=== PATIENT | male | born 1975 | race Caucasian/White ===

== ENCOUNTER 2017-03-03 21:11 | Inpatient (IN) | payer MEDICAID ==
[2017-03-03] MEDS ORDERED: Pantoprazole 40 mg EC Tab PO STA (21:30)
[2017-03-03 21:47] LABS: HEMATOCRIT 47.3 % (41.0-60); HEMOGLOBIN 16.1 gm/dL (12-16); MEAN CELL VOLUME 90.5 fl (80-99); MEAN CORPUSCULAR HEMOGLOBIN 30.7 pg (26.0-30.0); MEAN PLATELET VOLUME 10.1 fl; PLATELET COUNT 213 Th/cmm (150-400); RED BLOOD COUNT 5.22 Mil/cmm (4.30-5.70); RED CELL DISTRIBUTION WIDTH 12.3 % (11.5-20.0)
[2017-03-03 21:53] LABS: WHITE BLOOD COUNT 13.6 Th/cmm (4.8-10.8)
[2017-03-03 22:04] LABS: ALB/GLOB RATIO 1.2 (1.0-1.8); ALKALINE PHOSPHATASE 133 U/L (34-104); ANION GAP 9.1 (7.0-16.0); BILIRUBIN,TOTAL 0.9 mg/dL (0.3-1.0); BUN - UREA NITROGEN 17 mg/dL (7-25); BUN/CREATININE RATIO 28.3; CALCIUM SERUM 9.5 mg/dL (8.6-10.3); CARBON DIOXIDE 29.2 mEq/L (21.0-31.0); CHLORIDE 100 mEq/L (98-107); CREATININE - SERUM 0.6 mg/dL (0.7-1.3); GLUCOSE 106 mg/dL; POTASSIUM SERUM 3.3 mEq/L (3.5-5.1); SGOT 31 U/L (13-39); SGPT/ALT 32 U/L (7-52); SODIUM SERUM 135 mEq/L (136-145)
[2017-03-03 22:13] LABS: BAND NEUTROPHILE 4 % (0-10); NEUTROPHILS 86 % (40-80); PLATELET ESTIMATE ADEQUATE (NORMAL)
[2017-03-03] MEDS ORDERED: Potassium Chloride Elixir 20 mEq /15 mL UDC GT ONE (22:17)
[2017-03-03] MEDS ORDERED: Piperacillin Sodium/Tazobact 3.375 gm Vial IV ONE (22:33)
[2017-03-03] MEDS ORDERED: Pantoprazole 40 mg EC Tab PO ONE (22:43)
[2017-03-03] MEDS ORDERED: Potassium Chloride Elixir 20 mEq /15 mL UDC ONE (23:06)
[2017-03-04] MEDS ORDERED: Sodium Chloride 0.9% 1,000 ML IV SCH (00:15)
[2017-03-04] MEDS ORDERED: D5-0.45NS 1,000 ML IV SCH (00:45)
[2017-03-04 01:26] VITALS: BP 119/58
[2017-03-04] MEDS ORDERED: Influenza Vaccine 0.5 mL Syr IM ONE (01:56)
[2017-03-04] MEDS ORDERED: Fleet Enema 135 mL RC PRN (07:48)
[2017-03-04] MEDS ORDERED: Albuterol Nebulizer 2.5mg/3mL HHN PRN (07:48)
[2017-03-04] MEDS ORDERED: Magnesium Hydroxide (MOM) 30 mL UDC GT PRN (07:48)
[2017-03-04] MEDS ORDERED: Maalox 30 mL Cup PO PRN (07:50)
[2017-03-04] MEDS ORDERED: guaiFENesin 200 MG/10 ML UDC PO PRN (07:50)
[2017-03-04] MEDS: Multivitamin w/ Minerals Tab GT SCH (08:50)
[2017-03-04] MEDS: Ferrous Sulfate 300 MG/5 ML UDC GT SCH ×3 (08:50→20:31)
[2017-03-04] MEDS: Pantoprazole 40 mg/Packet GT SCH (08:50)
[2017-03-04] MEDS: carBAMazepine 200 mg/10 mL UDC GT SCH ×3 (08:50→20:31)
[2017-03-04] MEDS ORDERED: MULTIVITAMIN GT SCH (09:00)
[2017-03-04] MEDS ORDERED: Non-Formulary Item 1 EA (Ferrous Sulfate [Ferosul] 7.5 ML) GT SCH (09:00)
[2017-03-04] MEDS ORDERED: MINERALS GT SCH (09:00)
--- NOTE | 2017-03-04 09:49 | Diagnostic Imaging Report ---
CHEST X-RAY: AP view INDICATION: Pneumonia, mass COMPARISON: None FINDINGS: Chronic changes are seen with increased bibasilar lung markings. No focal consolidation or effusions. Mild cardiomegaly is noted. Suboptimal lung volumes are noted. Gas-filled loops of bowel are seen along the left hemiabdomen. Osseous structures are intact. IMPRESSION: Increased bibasilar lung markings favoring atelectatic changes, no focal consolidation identified. Mild cardiomegaly. If there is clinical concern for an occult pulmonary mass lesion, CT examination is recommended for further assessment.
[2017-03-04] MEDS: D5-0.9%NS 1,000 ML IV SCH (12:53)
[2017-03-04] MEDS ORDERED: Probiotic Screen MC PRN (13:26)
--- NOTE | 2017-03-04 22:04 | History & Physical ---
ADMIT DATE: 03/04/2017 CHIEF COMPLAINT: Vomiting, fever of 101.8. HISTORY OF PRESENT ILLNESS: This is a 41-year-old male with history of seizures, cerebral palsy, paraplegia, osteoporosis, dysphagia with G-tube was admitted from nursing facility secondary to the above complaints. The patient was brought into the ER and diagnosed with sepsis and admitted for further management. PAST MEDICAL HISTORY: As mentioned in history of present illness. PAST SURGICAL HISTORY: Status post G-tube. ALLERGIES: No known drug allergies. MEDICATIONS: Tylenol, albuterol, alendronate, ascorbic acid, ____, Tegretol, vitamin D3, iron, barium enema, Reglan, multivitamins, and pantoprazole. FAMILY HISTORY: Noncontributory. SOCIAL HISTORY: The patient is a long term patient, requiring 24-hour total care. REVIEW OF SYSTEMS: This is limited secondary to the patient's current mental state. We will try to obtain more detailed review of systems at a later date by talking to family members. Also, there is a bother, number [phone]. The mother has the same number. We will also try to get information from the nursing staff at [facility], number [phone] as well as from Dr. Irene who normally follows the patient. PHYSICAL EXAMINATION: VITAL SIGNS: Blood pressure 105/59, respiration 18, pulse 91, temperature ____. GENERAL: Middle-aged male, appears chronically ill. NECK: Supple. No mass. LUNGS: Equal breath sounds, few rhonchi. HEART: Regular rate and rhythm. Systolic without appreciable murmurs. ABDOMEN: Soft, globular. EXTREMITIES: Positive excoriation contractures, G-tube in place. LABORATORY DATA: WBC 13.6, hemoglobin 16, platelets 213. Sodium 135, potassium 3.3, BUN 17, creatinine 0.6. Alkaline phosphatase was 133, C-reactive protein 10.5. ASSESSMENT AND PLAN: Sepsis, seizure, cerebral palsy, paraplegia, osteoporosis, status post PEG. We will order patient's chest x-ray, urine C and S as well as patient's blood culture. Continue IV antibiotic, IV Maxipime as well as vancomycin. We will review the patient's labs. We will continue to monitor the patient closely. [facility]# [id number]
[2017-03-05 00:01] LABS: URINE BILIRUBIN NEGATIVE (NEGATIVE); URINE BLOOD LARGE (NEGATIVE); URINE GLUCOSE (UA) NEGATIVE (NEGATIVE); URINE KETONE TRACE mg/dL (NEGATIVE); URINE PH 6.5 (4.6 - 8.0); URINE PROTEIN 100 mg/dL (NEGATIVE)
[2017-03-05 00:02] LABS: URINE COLOR ORANGE
[2017-03-05 00:21] LABS: URINE BACTERIA FEW /hpf (NONE SEEN); URINE EPITHELIAL CELLS FEW /lpf (FEW)
[2017-03-05] MEDS: D5-0.9%NS 1,000 ML IV SCH (01:40)
[2017-03-05 06:19] LABS: % BASOPHILS 0.2 % (0.0-2.0); % EOSINOPHILS 3.8 % (0.0-5.0); % MONOCYTES 13.3 % (2.0-10.0); % NEUTROPHILS 49.7 % (40.0-80.0); MEAN CELL VOLUME 90.8 fl (80-99); MEAN CORPUSCULAR HEMOGLOBIN 30.4 pg (26.0-30.0); MEAN CORPUSCULAR HGB CONC 33.5 pg (28.0-36.0); MEAN PLATELET VOLUME 9.9 fl; NEUTROPHILE ABSOLUTE 3.3 Th/cmm (1.8-8.0); RED BLOOD COUNT 3.89 Mil/cmm (4.30-5.70); RED CELL DISTRIBUTION WIDTH 12.4 % (11.5-20.0)
[2017-03-05 06:36] LABS: WHITE BLOOD COUNT 6.7 Th/cmm (4.8-10.8)
[2017-03-05 06:37] LABS: HEMOGLOBIN 11.8 gm/dL (12-16)
[2017-03-05 06:38] LABS: HEMATOCRIT 35.3 % (41.0-60); PLATELET COUNT 161 Th/cmm (150-400)
[2017-03-05 06:40] LABS: ANION GAP 7.2 (7.0-16.0); BUN - UREA NITROGEN 13 mg/dL (7-25); BUN/CREATININE RATIO 32.5; CALCIUM SERUM 8.2 mg/dL (8.6-10.3); CARBON DIOXIDE 23.7 mEq/L (21.0-31.0); CHLORIDE 111 mEq/L (98-107); CREATININE - SERUM 0.4 mg/dL (0.7-1.3); GLUCOSE 100 mg/dL; MAGNESIUM 2.5 mg/dL (1.9-2.7); PHOSPHOROUS 2.2 mg/dL (2.5-5.0); POTASSIUM SERUM 3.9 mEq/L (3.5-5.1); SODIUM SERUM 138 mEq/L (136-145)
[2017-03-05] MEDS: carBAMazepine 200 mg/10 mL UDC GT SCH ×3 (09:17→21:57)
[2017-03-05] MEDS: Ferrous Sulfate 300 MG/5 ML UDC GT SCH ×3 (09:17→21:59)
[2017-03-05] MEDS: Pantoprazole 40 mg/Packet GT SCH (09:18)
[2017-03-05] MEDS: Lactobacillus Rhamnosus 10 Billion CFU Capsule PO SCH (09:18)
[2017-03-05] MEDS: Multivitamin w/ Minerals Tab GT SCH (09:18)
--- NOTE | 2017-03-05 09:30 | ER Physician Documentation ---
DATE OF SERVICE: 03/03/2017 EMERGENCY ROOM NOTE, HISTORY AND PHYSICAL EXAM, AND TREATMENT NOTE A 41-year-old came from Emergency Room, date of emergency room visit and treatment 03/03/2017, most likely he will be admitted today and doctor here will be taking care of the patient if he needs admission, most likely which he will, will be Dr. Rubio. The patient had a fever of 101.8 at [facility] where he was given 650 mg of suppository at 1945. According to the triage nurse, the patient had vomiting three times today and has fever since 1500 hours, temperature was 101.4, then I think it went higher than that to about 102 pulse. Vital signs taken here in our Emergency Room is 101.4, pulse 117, respirations 20, blood pressure 110/71, oxygen saturation 99%. Height 59 inches, weighing 120.1 pounds. The patient has cerebral palsy. The patient has contractures in all extremities. He is bedridden status. He does not speak. He is withdrawing from me. He cannot answer any questions, so history is only about what I am telling you, plus the diagnosis that would be given to you at the end of the dictation in order to avoid duplication of all the diagnosis of this patient. PHYSICAL EXAMINATION: The patient has contractures ____ contractures are somewhat in the hands and the legs. He is adequately built, but seems to be poorly nourished. The patient has a G-tube. The patient has CP, I don't know, I was told he has profound intelligent disability, seizure, paraplegia, osteoporosis, left hip fracture in the past, right ankle fracture in the past, anemia, osteoporosis. SURGERIES: Unknown. FAMILY HISTORY: Unknown. MEDICATIONS: I will give the list of the medication. His routine medications are alendronate 750 mg tablet 1 tablet per G-tube every week on Sunday, bolus with water, calcium carbonate 1250 mg 5 mL, give one teaspoonful 3 times a day for osteoporosis, carbamazepine 100 mg, which is 5 mL to be given daily at about a 20 hour, carbamazepine 100 mg 5 mL, give 2 teaspoonful, there is 200 mg per G-tube twice daily for seizure disorder, chlorophyll tablet 1 tablet twice a day and prescriber is Dr Mynor Irene daily, this should be given at 1 o'clock. The patient has a G-tube which needs to be cleaned, iron in the form of ferrous sulfate elixir 220 mg 5 mL to be given once daily and prescriber again is all Dr Irene because he is a patient of Dr. Mynor Irene. The patient gets ferrous sulfate elixir. The patient gets metoclopramide 1 tablet per G-tube 4 times a day. Side effects of Tegretol to be monitored, is written over here, Nexium 40 mg by G-tube needs to be given, Theragran by G-tube one tablet. Vitamin C 500 mg needs to be given plus vitamin D3 1000 units. Acephen suppository 650 mg 1 suppository. There is acetaminophen which was already given to him for his fever, of temperature and it is a p.r.n. order. Breathing treatment can be given to him in the form of albuterol nebulizer, bisacodyl suppository 10 mg, Fleet enema for constipation, Mapap tablet 325 mg 2 tablet by mouth every 4 hours as needed for temperature rectally, otherwise greater than 100 or equal to 100 rectally, not to exceed 3 grams in 24 hours and again take 2 tablets by mouth every 4 hours as needed, not to exceed more than 3 grams in 24 hours, I believe this is acetaminophen, milk of magnesia suspension barrier cream. ____. Check G-tube placement. G tube residual check every 8 hours, greater than 60 mL, hold the feeding and recheck in 1 hour. Diet is 2 grams 2000 calorie, I believe, HN at 47 mL an hour for 14 hours to provide 658 mL, 1316 kilocalories in 24 hours, on at 3:00 p.m. and off at 5:00 a.m. and dose is complete. Flush G tube with 200 mL of water every 6 hours, sunscreen apply to the face, therapeutic shampoo as needed on Tuesdays, ____ and Sunday for dandruff. Labs workup was also ordered. In final diagnosis for this patient is profound intellectual disability, cerebral palsy, seizure disorder, paraplegia, history of bilateral clubfeet status post triple arthrosis, osteopenia, left hip fracture 12/05 year is not mentioned. I hope that this might be this year, but the year is not mentioned. Dr. Rubio will find out and put that in, status post fracture right ankle. History of anemia, osteoporosis, Girdlestone procedure, G-tube placement with 30-50 mL before and after medicine administration. Elevate head of bed at 30-45 degrees. Lab orders were ordered in the half-way, TB screening, I believe was done on the original date when he was admitted on 2014 and may have G-tube flushes needed and plus other usual half-way orders, as written will be followed by Dr. Rubio or may need to be changed. Dr. Rubio will be his physician here. The patient will need admission, the patient's date is 1975, todays date of admission would be 03/03/2017 at 9:45 p.m. He was born in [place], male patient, . His attending physician telephone number Dr Irene [phone]. [address] Irene is [address] [place] [address]. Attending field support technician is Dr. Chisholm ____. Attending dentist is [facility], telephone number [phone]. Pharmacy alternatives is ____. Hospital preferences is [facility] and he is here and will be admitted to Dr. Rubio. Once I get the labs, I will discuss the case with him and I believe Kirby is the nurse here taking care of the patient. Next of the kin is Jb Velasco who are the parent, cell number is [phone]. Work of the mother [phone]. Next of kin relationship Mukesh Velasco, brother; Trinity Crespo grandmother. Brothers number [phone] and Perecita grandmother's #[phone]. There is an emergency number, Savannah Velasco, brothers cell number is [phone]. Marilee Velasco, sister cell phone number is [phone]. She lives in [address] [place] [address]. Resident insurance verification representative is [facility] Bernice Zak. marketing production coordinator, telephone number [phone]. Address is [address], [place] [address]. The diagnosis, etc. I already told you. He is a Medicare insurance, mortuary preference is [facility]. Telephone number [phone]. He has Medicare insurance card that I see here, issued on 08/05/2004. The patient's consent for treatment. The patient is unable to sign and the insurance verification representative of the patient has already signed this. I have written some preliminary orders, got some lactic acid, CBC, labs, chest x-ray, EKG. EKG is being done by Dr. Lake. I will look at it and let you know. Dr. Thuan Rubio number is [phone] and the vital signs at the half-way where he came from, ____ center he came with, number is [phone]. Vital signs over there was temperature of 102, pulse rate was 121, BP 95/52, oxygen saturation 97%. Height of 5 feet 9 inches, weighing 121. Evaluation for emesis, increased temperature, Mapap given. Milk of magnesia given to the patient. Admit and Dr. Rubio will call. The patient also has anemia, osteoporosis, etc. JOB# [id number]
--- NOTE | 2017-03-05 12:33 | Internal Medicine Prog Note ---
Internal Medicine Subjective - Subjective Service Date: 03/05/17 Patient seen and examined:: with staff Patient is:: awake, non-verbal, stares blankly Per staff patient has:: tolerating meds Internal Medicine Objective - Results Result Diagrams: 03/05/17 06:05 03/05/17 06:05 Recent Labs: Laboratory Last Values WBC 6.7 Th/cmm (4.8-10.8) D 03/05/17 06:05 RBC 3.89 Mil/cmm (4.30-5.70) L 03/05/17 06:05 Hgb 11.8 gm/dL (12-16) L D 03/05/17 06:05 Hct 35.3 % (41.0-60) L D 03/05/17 06:05 MCV 90.8 fl (80-99) 03/05/17 06:05 MCH 30.4 pg (26.0-30.0) H 03/05/17 06:05 MCHC Differential 33.5 pg (28.0-36.0) 03/05/17 06:05 RDW 12.4 % (11.5-20.0) 03/05/17 06:05 Plt Count 161 Th/cmm (150-400) D 03/05/17 06:05 MPV 9.9 fl 03/05/17 06:05 Neutrophils % 49.7 % (40.0-80.0) 03/05/17 06:05 Band Neutrophils % 4 % (0-10) 03/03/17 21:37 Lymphocytes % 33.0 % (20.0-50.0) 03/05/17 06:05 Monocytes % 13.3 % (2.0-10.0) H 03/05/17 06:05 Eosinophils % 3.8 % (0.0-5.0) 03/05/17 06:05 Basophils % 0.2 % (0.0-2.0) 03/05/17 06:05 Neutrophils (Manual) 86 % (40-80) H 03/03/17 21:37 Lymphocytes 9 % (20-50) L 03/03/17 21:37 Monocytes 1 % (2-10) L 03/03/17 21:37 Platelet Estimate ADEQUATE (NORMAL) 03/03/17 21:37 Sodium 138 mEq/L (136-145) 03/05/17 06:05 Potassium 3.9 mEq/L (3.5-5.1) 03/05/17 06:05 Chloride 111 mEq/L (98-107) H 03/05/17 06:05 Carbon Dioxide 23.7 mEq/L (21.0-31.0) 03/05/17 06:05 Anion Gap 7.2 (7.0-16.0) 03/05/17 06:05 BUN 13 mg/dL (7-25) 03/05/17 06:05 Creatinine 0.4 mg/dL (0.7-1.3) L 03/05/17 06:05 Est GFR ( Amer) > 60.0 ml/min (>90) 03/05/17 06:05 Est GFR (Non-Af Amer) > 60.0 ml/min 03/05/17 06:05 BUN/Creatinine Ratio 32.5 03/05/17 06:05 Glucose 100 mg/dL 03/05/17 06:05 Whole Bld Lactic Acid 1.73 mmol/L (0.60-1.99) 03/03/17 21:37 Calcium 8.2 mg/dL (8.6-10.3) L 03/05/17 06:05 Phosphorus 2.2 mg/dL (2.5-5.0) L 03/05/17 06:05 Magnesium 2.5 mg/dL (1.9-2.7) 03/05/17 06:05 Total Bilirubin 0.9 mg/dL (0.3-1.0) 03/03/17 21:37 AST 31 U/L (13-39) 03/03/17 21:37 ALT 32 U/L (7-52) 03/03/17 21:37 Alkaline Phosphatase 133 U/L (34-104) H 03/03/17 21:37 C-Reactive Protein 10.5 mg/dL (0.0-0.9) H 03/03/17 21:37 Total Protein 8.2 gm/dL (6.0-8.3) 03/03/17 21:37 Albumin 4.4 gm/dL (4.2-5.5) 03/03/17 21:37 Globulin 3.8 gm/dL 03/03/17 21:37 Albumin/Globulin Ratio 1.2 (1.0-1.8) 03/03/17 21:37 Urine Source GARCIA PORT 03/04/17 23:45 Urine Color ORANGE 03/04/17 23:45 Urine Clarity HAZY (CLEAR) 03/04/17 23:45 Urine pH 6.5 (4.6 - 8.0) 03/04/17 23:45 Ur Specific [place] 1.025 (1.005-1.030) 03/04/17 23:45 Urine Protein 100 mg/dL (NEGATIVE) H 03/04/17 23:45 Urine Glucose (UA) NEGATIVE mg/dL (NEGATIVE) 03/04/17 23:45 Urine Ketones TRACE mg/dL (NEGATIVE) 03/04/17 23:45 Urine Blood LARGE (NEGATIVE) H 03/04/17 23:45 Urine Nitrate NEGATIVE (NEGATIVE) 03/04/17 23:45 Urine Bilirubin NEGATIVE (NEGATIVE) 03/04/17 23:45 Urine Urobilinogen 1.0 E.U./dL (0.2 - 1.0) 03/04/17 23:45 Ur Leukocyte Esterase NEGATIVE (NEGATIVE) 03/04/17 23:45 Urine RBC 10-25 /hpf (0-5) H 03/04/17 23:45 Urine WBC 2-5 /hpf (0-5) H 03/04/17 23:45 Ur Epithelial Cells FEW /lpf (FEW) 03/04/17 23:45 Urine Bacteria FEW /hpf (NONE SEEN) 03/04/17 23:45 Urine Mucus MANY /lpf (FEW) 03/04/17 23:45 - Physical Exam Vitals and I&O: Vital Signs Temp 98.2 F 03/05/17 11:39 Pulse 92 03/05/17 11:39 Resp 17 03/05/17 11:39 BP 125/69 03/05/17 11:39 Pulse Ox 97 03/05/17 11:39 Intake & Output 03/04/17 03/05/17 03/05/17 18:59 06:59 18:59 Intake Total 532 1000 Output Total 500 100 Balance 32 900 Weight (lbs) 111 lb 126 lb Intake: Intake, IV Amount 50 1000 Cefepime 1 gm In Dextrose 50 5% 50 ml @ 100 mls/hr IV Q12H [facility] Rx#:[id number] D5-0.9%Ns 1,000 ml @ 80 1000 mls/hr IV .[id number] [facility] Rx #:[id number] Oral 0 Tube Feeding 282 TPN/PPN 0 Blood Product 0 Lipid 0 Albumin 0 Other 200 Output: Urine 350 100 Other 150 Other: # Bowel Movements 0 0 Active Medications: Current Medications Acetaminophen (Tylenol 650mg/20.3ml Suspension) 650 mg GT Q4H PRN PRN Reason: Pain or Fever >101 Stop: 05/03/17 07:47 Al Hydrox/Mg Hydrox/Simethicone (Maalox) 30 ml PO Q6H PRN PRN Reason: Dyspepsia Stop: 05/03/17 07:49 Albuterol Sulfate (Albuterol 2.5mg/3ml Neb Ud) 2.5 mg HHN Q6HRT PRN PRN Reason: Wheezing Stop: 05/03/17 07:47 Alendronate Sodium (Fosamax) 70 mg PO QSAT@0630 [facility] Stop: 05/09/17 06:29 Ascorbic Acid (Vitamin C) 500 mg GT BID [facility] Stop: 05/03/17 08:59 Last Admin: 03/05/17 09:18 Dose: 500 mg Bisacodyl (Dulcolax 10 Mg Supp) 10 mg RC DAILY PRN PRN Reason: Constipation Stop: 05/03/17 07:47 Calcium Carbonate (Tums) 500 mg GT TID [facility] Stop: 05/03/17 08:59 Last Admin: 03/05/17 09:18 Dose: 500 mg Carbamazepine (Tegretol) 400 mg GT 2000 [facility] PRN Reason: Protocol Stop: 05/03/17 19:59 Last Admin: 03/04/17 20:31 Dose: 400 mg Carbamazepine (Tegretol) 200 mg GT BID [facility] PRN Reason: Protocol Stop: 05/03/17 08:59 Last Admin: 03/05/17 09:17 Dose: 200 mg Cholecalciferol (Vitamin D3) 1,000 iu GT DAILY [facility] Stop: 05/03/17 08:59 Last Admin: 03/05/17 09:18 Dose: 1,000 iu Ferrous Sulfate (Iron) 300 mg GT TID [facility] Stop: 05/03/17 08:59 Last Admin: 03/05/17 09:17 Dose: 300 mg Guaifenesin (Robitussin) 200 mg PO Q4HR PRN PRN Reason: Cough or Congestion Stop: 05/03/17 07:49 Cefepime HCl 1 gm/ Dextrose 50 mls @ 100 mls/hr IV Q12H [facility] Stop: 05/03/17 07:59 Last Admin: 03/04/17 20:32 Dose: 100 mls/hr Dextrose/Sodium Chloride (D5-0.9%Ns) 1,000 mls @ 80 mls/hr IV .[id number] [facility] Stop: 05/03/17 07:59 Last Admin: 03/05/17 01:40 Dose: 80 mls/hr Lactobacillus Rhamnosus (Culturelle) 1 each PO DAILY [facility] Stop: 05/04/17 08:59 Last Admin: 03/05/17 09:18 Dose: 1 each Magnesium Hydroxide (Milk Of Magnesia) 30 ml GT DAILY PRN PRN Reason: Constipation Stop: 05/03/17 07:47 Metoclopramide HCl (Reglan) 10 mg GT QID [facility] Stop: 05/03/17 08:59 Last Admin: 03/05/17 09:17 Dose: 10 mg Miscellaneous (Probiotic Screen) 1 ea MC PRN PRN PRN Reason: PROTOCOL Stop: 05/03/17 13:25 Ondansetron HCl (Zofran) 4 mg IV Q8H PRN PRN Reason: Nausea / Vomiting Stop: 05/03/17 07:49 Pantoprazole Sodium (Protonix) 40 mg GT DAILY [facility] Stop: 05/03/17 08:59 Last Admin: 03/05/17 09:18 Dose: 40 mg Sodium Phosphate (Fleet Enema) 135 ml RC PRN PRN PRN Reason: IF DULCOLAX INEFFECTIVE Stop: 05/03/17 07:47 General: weak, alert HEENT: NC/AT, PERRLA Neck: Supple, No JVD Lungs: CTAB Cardiovascular: RRR, Normal S1, Normal S2, without murmur Abdomen: soft, non-tender, non-distended, positive bowel sound Extremities: excoriation Neurological: alert Internal Medicine Assmt/Plan - Assessment Assessment: SEPSIS SEIZURE CEREBRAL PALSY PARAPLEGIA OSTEOPOROSIS S/P PEG - Plan Plan: continue ivabx seizure precautions ivf for hydration continue current plan of care
[2017-03-05] MEDS ORDERED: Potassium Phosphate 30 MMOLE in Sodium Chloride 0.9% 250 ML IV ONE (14:00)
[2017-03-06] MEDS: D5-0.9%NS 1,000 ML IV SCH ×2 (01:06→15:03)
[2017-03-06 05:46] LABS: % BASOPHILS 0.2 % (0.0-2.0); % EOSINOPHILS 4.6 % (0.0-5.0); % LYMPHOCYTES 38.5 % (20.0-50.0); % MONOCYTES 11.1 % (2.0-10.0); % NEUTROPHILS 45.6 % (40.0-80.0); HEMATOCRIT 35.9 % (41.0-60); HEMOGLOBIN 12.2 gm/dL (12-16); MEAN CELL VOLUME 90.7 fl (80-99); MEAN CORPUSCULAR HEMOGLOBIN 30.7 pg (26.0-30.0); MEAN CORPUSCULAR HGB CONC 33.8 pg (28.0-36.0); MEAN PLATELET VOLUME 10.5 fl; NEUTROPHILE ABSOLUTE 2.8 Th/cmm (1.8-8.0); PLATELET COUNT 176 Th/cmm (150-400); RED BLOOD COUNT 3.96 Mil/cmm (4.30-5.70); RED CELL DISTRIBUTION WIDTH 12.3 % (11.5-20.0); WHITE BLOOD COUNT 6.2 Th/cmm (4.8-10.8)
[2017-03-06 06:05] LABS: ANION GAP 4.6 (7.0-16.0); BUN - UREA NITROGEN 11 mg/dL (7-25); BUN/CREATININE RATIO 27.5; CALCIUM SERUM 8.5 mg/dL (8.6-10.3); CARBON DIOXIDE 26.1 mEq/L (21.0-31.0); CHLORIDE 107 mEq/L (98-107); CREATININE - SERUM 0.4 mg/dL (0.7-1.3); GLUCOSE 103 mg/dL; POTASSIUM SERUM 3.7 mEq/L (3.5-5.1); SODIUM SERUM 134 mEq/L (136-145)
[2017-03-06] MEDS: Ferrous Sulfate 300 MG/5 ML UDC GT SCH ×3 (08:38→21:25)
[2017-03-06] MEDS: Pantoprazole 40 mg/Packet GT SCH (08:39)
[2017-03-06] MEDS: Multivitamin w/ Minerals Tab GT SCH (08:39)
[2017-03-06] MEDS: Lactobacillus Rhamnosus 10 Billion CFU Capsule PO SCH (08:39)
[2017-03-06] MEDS: carBAMazepine 200 mg/10 mL UDC GT SCH ×3 (08:41→20:26)
--- NOTE | 2017-03-06 10:30 | Internal Medicine Prog Note ---
Internal Medicine Subjective - Subjective Service Date: 03/06/17 Patient is:: awake, non-verbal, stares blankly Per staff patient has:: tolerating meds Internal Medicine Objective - Results Result Diagrams: 03/06/17 05:15 03/06/17 05:15 Recent Labs: Laboratory Last Values WBC 6.2 Th/cmm (4.8-10.8) 03/06/17 05:15 RBC 3.96 Mil/cmm (4.30-5.70) L 03/06/17 05:15 Hgb 12.2 gm/dL (12-16) 03/06/17 05:15 Hct 35.9 % (41.0-60) L 03/06/17 05:15 MCV 90.7 fl (80-99) 03/06/17 05:15 MCH 30.7 pg (26.0-30.0) H 03/06/17 05:15 MCHC Differential 33.8 pg (28.0-36.0) 03/06/17 05:15 RDW 12.3 % (11.5-20.0) 03/06/17 05:15 Plt Count 176 Th/cmm (150-400) 03/06/17 05:15 MPV 10.5 fl 03/06/17 05:15 Neutrophils % 45.6 % (40.0-80.0) 03/06/17 05:15 Band Neutrophils % 4 % (0-10) 03/03/17 21:37 Lymphocytes % 38.5 % (20.0-50.0) 03/06/17 05:15 Monocytes % 11.1 % (2.0-10.0) H 03/06/17 05:15 Eosinophils % 4.6 % (0.0-5.0) 03/06/17 05:15 Basophils % 0.2 % (0.0-2.0) 03/06/17 05:15 Neutrophils (Manual) 86 % (40-80) H 03/03/17 21:37 Lymphocytes 9 % (20-50) L 03/03/17 21:37 Monocytes 1 % (2-10) L 03/03/17 21:37 Platelet Estimate ADEQUATE (NORMAL) 03/03/17 21:37 Sodium 134 mEq/L (136-145) L 03/06/17 05:15 Potassium 3.7 mEq/L (3.5-5.1) 03/06/17 05:15 Chloride 107 mEq/L (98-107) 03/06/17 05:15 Carbon Dioxide 26.1 mEq/L (21.0-31.0) 03/06/17 05:15 Anion Gap 4.6 (7.0-16.0) L 03/06/17 05:15 BUN 11 mg/dL (7-25) 03/06/17 05:15 Creatinine 0.4 mg/dL (0.7-1.3) L 03/06/17 05:15 Est GFR ( Amer) > 60.0 ml/min (>90) 03/06/17 05:15 Est GFR (Non-Af Amer) > 60.0 ml/min 03/06/17 05:15 BUN/Creatinine Ratio 27.5 03/06/17 05:15 Glucose 103 mg/dL 03/06/17 05:15 Whole Bld Lactic Acid 1.73 mmol/L (0.60-1.99) 03/03/17 21:37 Calcium 8.5 mg/dL (8.6-10.3) L 03/06/17 05:15 Phosphorus 2.2 mg/dL (2.5-5.0) L 03/05/17 06:05 Magnesium 2.5 mg/dL (1.9-2.7) 03/05/17 06:05 Total Bilirubin 0.9 mg/dL (0.3-1.0) 03/03/17 21:37 AST 31 U/L (13-39) 03/03/17 21:37 ALT 32 U/L (7-52) 03/03/17 21:37 Alkaline Phosphatase 133 U/L (34-104) H 03/03/17 21:37 C-Reactive Protein 10.5 mg/dL (0.0-0.9) H 03/03/17 21:37 Total Protein 8.2 gm/dL (6.0-8.3) 03/03/17 21:37 Albumin 4.4 gm/dL (4.2-5.5) 03/03/17 21:37 Globulin 3.8 gm/dL 03/03/17 21:37 Albumin/Globulin Ratio 1.2 (1.0-1.8) 03/03/17 21:37 Urine Source GARCIA PORT 03/04/17 23:45 Urine Color ORANGE 03/04/17 23:45 Urine Clarity HAZY (CLEAR) 03/04/17 23:45 Urine pH 6.5 (4.6 - 8.0) 03/04/17 23:45 Ur Specific [place] 1.025 (1.005-1.030) 03/04/17 23:45 Urine Protein 100 mg/dL (NEGATIVE) H 03/04/17 23:45 Urine Glucose (UA) NEGATIVE mg/dL (NEGATIVE) 03/04/17 23:45 Urine Ketones TRACE mg/dL (NEGATIVE) 03/04/17 23:45 Urine Blood LARGE (NEGATIVE) H 03/04/17 23:45 Urine Nitrate NEGATIVE (NEGATIVE) 03/04/17 23:45 Urine Bilirubin NEGATIVE (NEGATIVE) 03/04/17 23:45 Urine Urobilinogen 1.0 E.U./dL (0.2 - 1.0) 03/04/17 23:45 Ur Leukocyte Esterase NEGATIVE (NEGATIVE) 03/04/17 23:45 Urine RBC 10-25 /hpf (0-5) H 03/04/17 23:45 Urine WBC 2-5 /hpf (0-5) H 03/04/17 23:45 Ur Epithelial Cells FEW /lpf (FEW) 03/04/17 23:45 Urine Bacteria FEW /hpf (NONE SEEN) 03/04/17 23:45 Urine Mucus MANY /lpf (FEW) 03/04/17 23:45 - Physical Exam Vitals and I&O: Vital Signs Temp 96.7 F 03/06/17 08:18 Pulse 80 03/06/17 08:18 Resp 18 03/06/17 08:18 BP 112/61 03/06/17 08:18 Pulse Ox 96 03/06/17 08:18 Intake & Output 03/05/17 03/06/17 03/06/17 18:59 06:59 18:59 Intake Total 1370 Output Total 700 400 Balance 670 -400 Weight (lbs) 126 lb 132 lb 11.2 oz Intake: Intake, IV Amount 1050 Cefepime 1 gm In Dextrose 50 5% 50 ml @ 100 mls/hr IV Q12H [facility] Rx#:[id number] D5-0.9%Ns 1,000 ml @ 80 1000 mls/hr IV .[id number] [facility] Rx #:[id number] Oral 320 Output: Urine 700 400 Other: # Bowel Movements 0 Active Medications: Current Medications Acetaminophen (Tylenol 650mg/20.3ml Suspension) 650 mg GT Q4H PRN PRN Reason: Pain or Fever >101 Stop: 05/03/17 07:47 Al Hydrox/Mg Hydrox/Simethicone (Maalox) 30 ml PO Q6H PRN PRN Reason: Dyspepsia Stop: 05/03/17 07:49 Albuterol Sulfate (Albuterol 2.5mg/3ml Neb Ud) 2.5 mg HHN Q6HRT PRN PRN Reason: Wheezing Stop: 05/03/17 07:47 Alendronate Sodium (Fosamax) 70 mg PO QSAT@0630 [facility] Stop: 05/09/17 06:29 Ascorbic Acid (Vitamin C) 500 mg GT BID [facility] Stop: 05/03/17 08:59 Last Admin: 03/06/17 08:39 Dose: 500 mg Bisacodyl (Dulcolax 10 Mg Supp) 10 mg RC DAILY PRN PRN Reason: Constipation Stop: 05/03/17 07:47 Calcium Carbonate (Tums) 500 mg GT TID [facility] Stop: 05/03/17 08:59 Last Admin: 03/06/17 08:38 Dose: 500 mg Carbamazepine (Tegretol) 400 mg GT 2000 [facility] PRN Reason: Protocol Stop: 05/03/17 19:59 Last Admin: 03/05/17 21:57 Dose: 400 mg Carbamazepine (Tegretol) 200 mg GT BID [facility] PRN Reason: Protocol Stop: 05/03/17 08:59 Last Admin: 03/06/17 08:41 Dose: 200 mg Cholecalciferol (Vitamin D3) 1,000 iu GT DAILY [facility] Stop: 05/03/17 08:59 Last Admin: 03/06/17 08:38 Dose: 1,000 iu Ferrous Sulfate (Iron) 300 mg GT TID [facility] Stop: 05/03/17 08:59 Last Admin: 03/06/17 08:38 Dose: 300 mg Guaifenesin (Robitussin) 200 mg PO Q4HR PRN PRN Reason: Cough or Congestion Stop: 05/03/17 07:49 Cefepime HCl 1 gm/ Dextrose 50 mls @ 100 mls/hr IV Q12H [facility] Stop: 05/03/17 07:59 Last Admin: 03/06/17 09:45 Dose: 100 mls/hr Dextrose/Sodium Chloride (D5-0.9%Ns) 1,000 mls @ 80 mls/hr IV .[id number] [facility] Stop: 05/03/17 07:59 Last Admin: 03/06/17 01:06 Dose: 80 mls/hr Lactobacillus Rhamnosus (Culturelle) 1 each PO DAILY [facility] Stop: 05/04/17 08:59 Last Admin: 03/06/17 08:39 Dose: 1 each Magnesium Hydroxide (Milk Of Magnesia) 30 ml GT DAILY PRN PRN Reason: Constipation Stop: 05/03/17 07:47 Metoclopramide HCl (Reglan) 10 mg GT QID [facility] Stop: 05/03/17 08:59 Last Admin: 03/06/17 08:38 Dose: 10 mg Miscellaneous (Probiotic Screen) 1 ea MC PRN PRN PRN Reason: PROTOCOL Stop: 05/03/17 13:25 Ondansetron HCl (Zofran) 4 mg IV Q8H PRN PRN Reason: Nausea / Vomiting Stop: 05/03/17 07:49 Pantoprazole Sodium (Protonix) 40 mg GT DAILY [facility] Stop: 05/03/17 08:59 Last Admin: 03/06/17 08:39 Dose: 40 mg Sodium Phosphate (Fleet Enema) 135 ml RC PRN PRN PRN Reason: IF DULCOLAX INEFFECTIVE Stop: 05/03/17 07:47 General: weak, alert HEENT: NC/AT, PERRLA Neck: Supple, No JVD Lungs: CTAB Cardiovascular: RRR, Normal S1, Normal S2, without murmur Abdomen: soft, non-tender, non-distended, positive bowel sound Extremities: excoriation Neurological: alert Internal Medicine Assmt/Plan - Assessment Assessment: SEPSIS SEIZURE CEREBRAL PALSY PARAPLEGIA OSTEOPOROSIS S/P PEG - Plan Plan: continue ivabx seizure precautions ivf for hydration continue current plan of care Nutritional Asmnt/Malnutr-PDOC - Dietary Evaluation Malnutrition Findings (Please click <Entered> for more info): Nutritional Asmnt/Malnutrition Start: 03/06/17 09: 43 Text: Status: Active Freq: Document 03/06/17 09:43 RAMONARACHAEL (Rec: 03/06/17 10:13 [email or web address] [email or web address]) Nutritional Asmnt/Malnutrition Patient General Information Nutritional Screening High Risk Diagnosis Sepsis Pertinent Medical Hx/Surgical Hx Seizures, Cerebral palsy, Paraplegia, osteoporosis, dysphagia with G-tube Subjective Information Pt was admitted from SNF with G-tube Pt is tolerating TF with minimal residual per nurse notes Current Diet Order/ Nutrition Support Nutren 2.0 at 47ml/hr x 14hr daily, providing 1316kcal, 55g pro Pertinent Medications Vitamin C, Vitamin D, D5 80ml/ hr, Iron, Culturelle, Reglan, Pertinent Labs 03/06: Na 134L, K 3.7, Cl 107, BUN 11, Cr 0.4L, Ca 8.5L, Glu 103 03/05: Phos 2.2L, Mg 2.5 Nutritional Hx/Data Height 4 ft 11 in Height (Calculated Centimeters) 149.9 Current Weight (lbs) 132 lb 11.2 oz Weight (Calculated Kilograms) 60.2 Weight (Calculated Grams) 73021.7 [place] Body Weight 100 % [place] Body Weight 133 Body Mass Index (BMI) 26.8 Weight Status Overweight GI Symptoms Difficult in: Swallowing Food Allergies No Usual diet at home at halfway: TwoCal HN 47ml/hr x 14hr daily, providing 1316kcal, Skin Integrity/Comment: Intact Estimated Nutritional Goals BEE in Kcals: Using Current wt Calories/Kcals/Kg 30-35 Kcals Calculated 7019-5558 Protein: Using Current wt Protein g/k.2-1.5 Protein Calculated 72-90 Fluid: ml 1800-2100ml (1ml/kcal) Nutritional Problem 1. Problem Problem Increased nutrition needs ( calorie and protein) Etiology increased metabolic demands Signs/Symptoms: dx of sepsis
[2017-03-07 05:52] LABS: % BASOPHILS 1.2 % (0.0-2.0); % EOSINOPHILS 4.5 % (0.0-5.0); % LYMPHOCYTES 34.7 % (20.0-50.0); % MONOCYTES 6.4 % (2.0-10.0); % NEUTROPHILS 53.2 % (40.0-80.0); HEMOGLOBIN 13.2 gm/dL (12-16); MEAN CELL VOLUME 90.1 fl (80-99); MEAN CORPUSCULAR HEMOGLOBIN 30.4 pg (26.0-30.0); MEAN CORPUSCULAR HGB CONC 33.8 pg (28.0-36.0); MEAN PLATELET VOLUME 11.2 fl; NEUTROPHILE ABSOLUTE 4.1 Th/cmm (1.8-8.0); PLATELET COUNT 145 Th/cmm (150-400); RED BLOOD COUNT 4.33 Mil/cmm (4.30-5.70); RED CELL DISTRIBUTION WIDTH 11.9 % (11.5-20.0)
[2017-03-07 05:55] LABS: WHITE BLOOD COUNT 7.7 Th/cmm (4.8-10.8)
[2017-03-07 06:05] LABS: ANION GAP 7.3 (7.0-16.0); BUN - UREA NITROGEN 9 mg/dL (7-25); BUN/CREATININE RATIO 22.5; CALCIUM SERUM 8.7 mg/dL (8.6-10.3); CARBON DIOXIDE 25.7 mEq/L (21.0-31.0); CHLORIDE 107 mEq/L (98-107); CREATININE - SERUM 0.4 mg/dL (0.7-1.3); GLUCOSE 113 mg/dL; SODIUM SERUM 136 mEq/L (136-145)
[2017-03-07] MEDS: D5-0.9%NS 1,000 ML IV SCH (06:38)
[2017-03-07] MEDS: Lactobacillus Rhamnosus 10 Billion CFU Capsule PO SCH (08:21)
[2017-03-07] MEDS: Ferrous Sulfate 300 MG/5 ML UDC GT SCH ×3 (08:21→21:34)
[2017-03-07] MEDS: Pantoprazole 40 mg/Packet GT SCH (08:22)
[2017-03-07] MEDS: Multivitamin w/ Minerals Tab GT SCH (08:22)
[2017-03-07] MEDS: carBAMazepine 200 mg/10 mL UDC GT SCH ×2 (08:22→20:00)
--- NOTE | 2017-03-07 11:59 | Internal Medicine Prog Note ---
Internal Medicine Subjective - Subjective Service Date: 03/07/17 Patient seen and examined:: with staff Patient is:: awake, non-verbal, stares blankly Per staff patient has:: no adverse event, tolerating meds Internal Medicine Objective - Results Result Diagrams: 03/07/17 05:05 03/07/17 05:05 Recent Labs: Laboratory Last Values WBC 7.7 Th/cmm (4.8-10.8) D 03/07/17 05:05 RBC 4.33 Mil/cmm (4.30-5.70) 03/07/17 05:05 Hgb 13.2 gm/dL (12-16) 03/07/17 05:05 Hct 39.0 % (41.0-60) L 03/07/17 05:05 MCV 90.1 fl (80-99) 03/07/17 05:05 MCH 30.4 pg (26.0-30.0) H 03/07/17 05:05 MCHC Differential 33.8 pg (28.0-36.0) 03/07/17 05:05 RDW 11.9 % (11.5-20.0) 03/07/17 05:05 Plt Count 145 Th/cmm (150-400) L 03/07/17 05:05 MPV 11.2 fl 03/07/17 05:05 Neutrophils % 53.2 % (40.0-80.0) 03/07/17 05:05 Band Neutrophils % 4 % (0-10) 03/03/17 21:37 Lymphocytes % 34.7 % (20.0-50.0) 03/07/17 05:05 Monocytes % 6.4 % (2.0-10.0) 03/07/17 05:05 Eosinophils % 4.5 % (0.0-5.0) 03/07/17 05:05 Basophils % 1.2 % (0.0-2.0) 03/07/17 05:05 Neutrophils (Manual) 86 % (40-80) H 03/03/17 21:37 Lymphocytes 9 % (20-50) L 03/03/17 21:37 Monocytes 1 % (2-10) L 03/03/17 21:37 Platelet Estimate ADEQUATE (NORMAL) 03/03/17 21:37 Sodium 136 mEq/L (136-145) 03/07/17 05:05 Potassium 4.0 mEq/L (3.5-5.1) 03/07/17 05:05 Chloride 107 mEq/L (98-107) 03/07/17 05:05 Carbon Dioxide 25.7 mEq/L (21.0-31.0) 03/07/17 05:05 Anion Gap 7.3 (7.0-16.0) 03/07/17 05:05 BUN 9 mg/dL (7-25) 03/07/17 05:05 Creatinine 0.4 mg/dL (0.7-1.3) L 03/07/17 05:05 Est GFR ( Amer) > 60.0 ml/min (>90) 03/07/17 05:05 Est GFR (Non-Af Amer) > 60.0 ml/min 03/07/17 05:05 BUN/Creatinine Ratio 22.5 03/07/17 05:05 Glucose 113 mg/dL 03/07/17 05:05 Whole Bld Lactic Acid 1.73 mmol/L (0.60-1.99) 03/03/17 21:37 Calcium 8.7 mg/dL (8.6-10.3) 03/07/17 05:05 Phosphorus 2.2 mg/dL (2.5-5.0) L 03/05/17 06:05 Magnesium 2.5 mg/dL (1.9-2.7) 03/05/17 06:05 Total Bilirubin 0.9 mg/dL (0.3-1.0) 03/03/17 21:37 AST 31 U/L (13-39) 03/03/17 21:37 ALT 32 U/L (7-52) 03/03/17 21:37 Alkaline Phosphatase 133 U/L (34-104) H 03/03/17 21:37 C-Reactive Protein 10.5 mg/dL (0.0-0.9) H 03/03/17 21:37 Total Protein 8.2 gm/dL (6.0-8.3) 03/03/17 21:37 Albumin 4.4 gm/dL (4.2-5.5) 03/03/17 21:37 Globulin 3.8 gm/dL 03/03/17 21:37 Albumin/Globulin Ratio 1.2 (1.0-1.8) 03/03/17 21:37 Urine Source GARCIA PORT 03/04/17 23:45 Urine Color ORANGE 03/04/17 23:45 Urine Clarity HAZY (CLEAR) 03/04/17 23:45 Urine pH 6.5 (4.6 - 8.0) 03/04/17 23:45 Ur Specific [place] 1.025 (1.005-1.030) 03/04/17 23:45 Urine Protein 100 mg/dL (NEGATIVE) H 03/04/17 23:45 Urine Glucose (UA) NEGATIVE mg/dL (NEGATIVE) 03/04/17 23:45 Urine Ketones TRACE mg/dL (NEGATIVE) 03/04/17 23:45 Urine Blood LARGE (NEGATIVE) H 03/04/17 23:45 Urine Nitrate NEGATIVE (NEGATIVE) 03/04/17 23:45 Urine Bilirubin NEGATIVE (NEGATIVE) 03/04/17 23:45 Urine Urobilinogen 1.0 E.U./dL (0.2 - 1.0) 03/04/17 23:45 Ur Leukocyte Esterase NEGATIVE (NEGATIVE) 03/04/17 23:45 Urine RBC 10-25 /hpf (0-5) H 03/04/17 23:45 Urine WBC 2-5 /hpf (0-5) H 03/04/17 23:45 Ur Epithelial Cells FEW /lpf (FEW) 03/04/17 23:45 Urine Bacteria FEW /hpf (NONE SEEN) 03/04/17 23:45 Urine Mucus MANY /lpf (FEW) 03/04/17 23:45 - Physical Exam Vitals and I&O: Vital Signs Temp 98.3 F 03/07/17 08:00 Pulse 84 03/07/17 08:00 Resp 18 03/07/17 08:11 BP 117/61 03/07/17 08:00 Pulse Ox 98 03/07/17 08:00 Intake & Output 03/06/17 03/07/17 03/07/17 18:59 06:59 18:59 Intake Total 1276.667 823.333 Output Total 750 Balance 1276.667 73.333 Weight (lbs) 129 lb 4.8 oz Intake: Intake, IV Amount 1276.667 823.333 Cefepime 1 gm In Dextrose 50 50 5% 50 ml @ 100 mls/hr IV Q12H [facility] Rx#:[id number] D5-0.9%Ns 1,000 ml @ 80 1226.667 773.333 mls/hr IV .[id number] [facility] Rx #:[id number] Output: Urine 750 Active Medications: Current Medications Acetaminophen (Tylenol 650mg/20.3ml Suspension) 650 mg GT Q4H PRN PRN Reason: Pain or Fever >101 Stop: 05/03/17 07:47 Al Hydrox/Mg Hydrox/Simethicone (Maalox) 30 ml PO Q6H PRN PRN Reason: Dyspepsia Stop: 05/03/17 07:49 Albuterol Sulfate (Albuterol 2.5mg/3ml Neb Ud) 2.5 mg HHN Q6HRT PRN PRN Reason: Wheezing Stop: 05/03/17 07:47 Alendronate Sodium (Fosamax) 70 mg PO QSAT@0630 [facility] Stop: 05/09/17 06:29 Ascorbic Acid (Vitamin C) 500 mg GT BID [facility] Stop: 05/03/17 08:59 Last Admin: 03/07/17 08:23 Dose: 500 mg Bisacodyl (Dulcolax 10 Mg Supp) 10 mg RC DAILY PRN PRN Reason: Constipation Stop: 05/03/17 07:47 Calcium Carbonate (Tums) 500 mg GT TID [facility] Stop: 05/03/17 08:59 Last Admin: 03/07/17 08:22 Dose: 500 mg Carbamazepine (Tegretol) 400 mg GT 2000 [facility] PRN Reason: Protocol Stop: 05/03/17 19:59 Last Admin: 03/06/17 20:26 Dose: 400 mg Carbamazepine (Tegretol) 200 mg GT BID [facility] PRN Reason: Protocol Stop: 05/03/17 08:59 Last Admin: 03/07/17 08:22 Dose: 200 mg Cholecalciferol (Vitamin D3) 1,000 iu GT DAILY [facility] Stop: 05/03/17 08:59 Last Admin: 03/07/17 08:23 Dose: 1,000 iu Ferrous Sulfate (Iron) 300 mg GT TID [facility] Stop: 05/03/17 08:59 Last Admin: 03/07/17 08:21 Dose: 300 mg Guaifenesin (Robitussin) 200 mg PO Q4HR PRN PRN Reason: Cough or Congestion Stop: 05/03/17 07:49 Cefepime HCl 1 gm/ Dextrose 50 mls @ 100 mls/hr IV Q12H [facility] Stop: 05/03/17 07:59 Last Admin: 03/07/17 08:21 Dose: 100 mls/hr Dextrose/Sodium Chloride (D5-0.9%Ns) 1,000 mls @ 80 mls/hr IV .[id number] [facility] Stop: 05/03/17 07:59 Last Admin: 03/07/17 06:38 Dose: 80 mls/hr Lactobacillus Rhamnosus (Culturelle) 1 each PO DAILY [facility] Stop: 05/04/17 08:59 Last Admin: 03/07/17 08:21 Dose: 1 each Magnesium Hydroxide (Milk Of Magnesia) 30 ml GT DAILY PRN PRN Reason: Constipation Stop: 05/03/17 07:47 Metoclopramide HCl (Reglan) 10 mg GT QID [facility] Stop: 05/03/17 08:59 Last Admin: 03/07/17 08:22 Dose: 10 mg Miscellaneous (Probiotic Screen) 1 ea MC PRN PRN PRN Reason: PROTOCOL Stop: 05/03/17 13:25 Ondansetron HCl (Zofran) 4 mg IV Q8H PRN PRN Reason: Nausea / Vomiting Stop: 05/03/17 07:49 Pantoprazole Sodium (Protonix) 40 mg GT DAILY [facility] Stop: 05/03/17 08:59 Last Admin: 03/07/17 08:22 Dose: 40 mg Sodium Phosphate (Fleet Enema) 135 ml RC PRN PRN PRN Reason: IF DULCOLAX INEFFECTIVE Stop: 05/03/17 07:47 General: weak, alert HEENT: NC/AT, PERRLA Neck: Supple, No JVD Lungs: CTAB Cardiovascular: RRR, Normal S1, Normal S2, without murmur Abdomen: soft, non-tender, non-distended, positive bowel sound Extremities: excoriation Neurological: alert Internal Medicine Assmt/Plan - Assessment Assessment: SEPSIS SEIZURE CEREBRAL PALSY PARAPLEGIA OSTEOPOROSIS S/P PEG - Plan Plan: continue ivabx if tolerate gtf ok to dc today seizure precautions ivf for hydration continue current plan of care Nutritional Asmnt/Malnutr-PDOC - Dietary Evaluation Malnutrition Findings (Please click <Entered> for more info): Nutritional Asmnt/Malnutrition Start: 03/06/17 09: 43 Text: Status: Active Freq: Document 03/06/17 09:43 RAMONARACHAEL (Rec: 03/06/17 10:13 [email or web address] [email or web address]) Nutritional Asmnt/Malnutrition Patient General Information Nutritional Screening High Risk Diagnosis Sepsis Pertinent Medical Hx/Surgical Hx Seizures, Cerebral palsy, Paraplegia, osteoporosis, dysphagia with G-tube Subjective Information Pt was admitted from SNF with G-tube. Noted pt is non-verbal . TF Nutren 2.0 is running at 47ml/hr x 14hr from 1000- 1200am. Spoke with ROSALIA Rice , pt is tolerating well, no residual noted this morning. Physical exam performed, showed no muscle/fat wasting. Current Diet Order/ Nutrition Support Nutren 2.0 at 47ml/hr x 14hr daily, providing 1316kcal, 55g pro Pertinent Medications Vitamin C, Vitamin D, D5 80ml/ hr, Iron, Culturelle, Reglan Pertinent Labs 03/06: Na 134L, K 3.7, Cl 107, BUN 11, Cr 0.4L, Ca 8.5L, Glu 103 03/05: Phos 2.2L, Mg 2.5 Nutritional Hx/Data Height 4 ft 11 in Height (Calculated Centimeters) 149.9 Current Weight (lbs) 132 lb 11.2 oz Weight (Calculated Kilograms) 60.2 Weight (Calculated Grams) 77773.7 [place] Body Weight 100 % [place] Body Weight 133 Body Mass Index (BMI) 26.8 Weight Status Overweight GI Symptoms Difficult in: Swallowing Food Allergies No Usual diet at home at care home: TwoCal HN 47ml/hr x 14hr daily, providing 1316kcal Skin Integrity/Comment: Intact Estimated Nutritional Goals BEE in Kcals: Using Current wt Calories/Kcals/Kg 30-35 Kcals Calculated 7530-4420 Protein: Using Current wt Protein g/k.2-1.5 Protein Calculated 72-90 Fluid: ml 1800-2100ml (1ml/kcal) Nutritional Problem 2. Problem Problem Inadequate enteral intake Etiology current nutrition support not meeting increased nutritional needs Signs/Symptoms: current TF meeting 75% of lower end calorie and protein needs 1. Problem Problem Increased nutrition needs ( calorie and protein) Etiology increased metabolic demands Signs/Symptoms: dx of sepsis Malnutrition Alert Protein-Calorie Malnutrition N/A Is there a minimum of two criteria No selected? Query Text:Check all the applicable criteria. A minimum of two criteria are recommended for diagnosis of either severe or non-severe malnutrition. Intervention/Recommendation Recommendations by RD Increase Calorie Intake Comments 1. Recommend to increase TF rate to 65ml/hr x 14hr daily. It provides 1820kcal, 76g pro and 630ml free water, meeting 100% of estimated nutritional needs 2. Monitor labs, wt weekly, skin integrity 3. F/U as high risk in 2-3 days, 03/08-03/09 Expected Outcomes/Goals Expected Outcomes/Goals 1. Pt to meet 100% of nutritional needs with tolerance 2. Labs to improve 3. Wt stability 4. Skin to remain intact
[2017-03-08 06:15] LABS: % BASOPHILS 0.5 % (0.0-2.0); % EOSINOPHILS 4.8 % (0.0-5.0); % LYMPHOCYTES 30.7 % (20.0-50.0); % MONOCYTES 6.9 % (2.0-10.0); % NEUTROPHILS 57.1 % (40.0-80.0); HEMATOCRIT 38.6 % (41.0-60); HEMOGLOBIN 13.1 gm/dL (12-16); MEAN CELL VOLUME 90.3 fl (80-99); MEAN CORPUSCULAR HEMOGLOBIN 30.6 pg (26.0-30.0); MEAN CORPUSCULAR HGB CONC 33.9 pg (28.0-36.0); MEAN PLATELET VOLUME 9.4 fl; NEUTROPHILE ABSOLUTE 6.1 Th/cmm (1.8-8.0); RED BLOOD COUNT 4.27 Mil/cmm (4.30-5.70); RED CELL DISTRIBUTION WIDTH 12.1 % (11.5-20.0)
[2017-03-08 06:16] LABS: PLATELET COUNT 207 Th/cmm (150-400); WHITE BLOOD COUNT 10.7 Th/cmm (4.8-10.8)
[2017-03-08 06:28] LABS: ANION GAP 7.1 (7.0-16.0); BUN - UREA NITROGEN 11 mg/dL (7-25); BUN/CREATININE RATIO 18.3; CALCIUM SERUM 9.2 mg/dL (8.6-10.3); CARBON DIOXIDE 30.3 mEq/L (21.0-31.0); CHLORIDE 107 mEq/L (98-107); CREATININE - SERUM 0.6 mg/dL (0.7-1.3); GLUCOSE 101 mg/dL (70-105); POTASSIUM SERUM 4.4 mEq/L (3.5-5.1); SODIUM SERUM 140 mEq/L (136-145)
[2017-03-08] MEDS: carBAMazepine 200 mg/10 mL UDC GT SCH ×2 (09:15→16:13)
[2017-03-08] MEDS: Lactobacillus Rhamnosus 10 Billion CFU Capsule PO SCH (09:17)
[2017-03-08] MEDS: Pantoprazole 40 mg/Packet GT SCH (09:17)
[2017-03-08] MEDS: Multivitamin w/ Minerals Tab GT SCH (09:17)
[2017-03-08] MEDS: Ferrous Sulfate 300 MG/5 ML UDC GT SCH (09:17)
--- NOTE | 2017-03-08 12:00 | Internal Medicine Prog Note ---
Internal Medicine Subjective - Subjective Service Date: 03/08/17 (DC SUMMARY [id number]) Patient is:: awake, non-verbal, stares blankly Per staff patient has:: no adverse event, tolerating meds Internal Medicine Objective - Results Result Diagrams: 03/08/17 05:45 03/08/17 05:45 Recent Labs: Laboratory Last Values WBC 10.7 Th/cmm (4.8-10.8) D 03/08/17 05:45 RBC 4.27 Mil/cmm (4.30-5.70) L 03/08/17 05:45 Hgb 13.1 gm/dL (12-16) 03/08/17 05:45 Hct 38.6 % (41.0-60) L 03/08/17 05:45 MCV 90.3 fl (80-99) 03/08/17 05:45 MCH 30.6 pg (26.0-30.0) H 03/08/17 05:45 MCHC Differential 33.9 pg (28.0-36.0) 03/08/17 05:45 RDW 12.1 % (11.5-20.0) 03/08/17 05:45 Plt Count 207 Th/cmm (150-400) D 03/08/17 05:45 MPV 9.4 fl 03/08/17 05:45 Neutrophils % 57.1 % (40.0-80.0) 03/08/17 05:45 Band Neutrophils % 4 % (0-10) 03/03/17 21:37 Lymphocytes % 30.7 % (20.0-50.0) 03/08/17 05:45 Monocytes % 6.9 % (2.0-10.0) 03/08/17 05:45 Eosinophils % 4.8 % (0.0-5.0) 03/08/17 05:45 Basophils % 0.5 % (0.0-2.0) 03/08/17 05:45 Neutrophils (Manual) 86 % (40-80) H 03/03/17 21:37 Lymphocytes 9 % (20-50) L 03/03/17 21:37 Monocytes 1 % (2-10) L 03/03/17 21:37 Platelet Estimate ADEQUATE (NORMAL) 03/03/17 21:37 Sodium 140 mEq/L (136-145) 03/08/17 05:45 Potassium 4.4 mEq/L (3.5-5.1) 03/08/17 05:45 Chloride 107 mEq/L (98-107) 03/08/17 05:45 Carbon Dioxide 30.3 mEq/L (21.0-31.0) 03/08/17 05:45 Anion Gap 7.1 (7.0-16.0) 03/08/17 05:45 BUN 11 mg/dL (7-25) 03/08/17 05:45 Creatinine 0.6 mg/dL (0.7-1.3) L 03/08/17 05:45 Est GFR ( Amer) > 60.0 ml/min (>90) 03/08/17 05:45 Est GFR (Non-Af Amer) > 60.0 ml/min 03/08/17 05:45 BUN/Creatinine Ratio 18.3 03/08/17 05:45 Glucose 101 mg/dL (70-105) 03/08/17 05:45 Whole Bld Lactic Acid 1.73 mmol/L (0.60-1.99) 03/03/17 21:37 Calcium 9.2 mg/dL (8.6-10.3) 03/08/17 05:45 Phosphorus 2.2 mg/dL (2.5-5.0) L 03/05/17 06:05 Magnesium 2.5 mg/dL (1.9-2.7) 03/05/17 06:05 Total Bilirubin 0.9 mg/dL (0.3-1.0) 03/03/17 21:37 AST 31 U/L (13-39) 03/03/17 21:37 ALT 32 U/L (7-52) 03/03/17 21:37 Alkaline Phosphatase 133 U/L (34-104) H 03/03/17 21:37 C-Reactive Protein 10.5 mg/dL (0.0-0.9) H 03/03/17 21:37 Total Protein 8.2 gm/dL (6.0-8.3) 03/03/17 21:37 Albumin 4.4 gm/dL (4.2-5.5) 03/03/17 21:37 Globulin 3.8 gm/dL 03/03/17 21:37 Albumin/Globulin Ratio 1.2 (1.0-1.8) 03/03/17 21:37 Urine Source GARCIA [place] 03/04/17 23:45 Urine Color ORANGE 03/04/17 23:45 Urine Clarity HAZY (CLEAR) 03/04/17 23:45 Urine pH 6.5 (4.6 - 8.0) 03/04/17 23:45 Ur Specific [place] 1.025 (1.005-1.030) 03/04/17 23:45 Urine Protein 100 mg/dL (NEGATIVE) H 03/04/17 23:45 Urine Glucose (UA) NEGATIVE mg/dL (NEGATIVE) 03/04/17 23:45 Urine Ketones TRACE mg/dL (NEGATIVE) 03/04/17 23:45 Urine Blood LARGE (NEGATIVE) H 03/04/17 23:45 Urine Nitrate NEGATIVE (NEGATIVE) 03/04/17 23:45 Urine Bilirubin NEGATIVE (NEGATIVE) 03/04/17 23:45 Urine Urobilinogen 1.0 E.U./dL (0.2 - 1.0) 03/04/17 23:45 Ur Leukocyte Esterase NEGATIVE (NEGATIVE) 03/04/17 23:45 Urine RBC 10-25 /hpf (0-5) H 03/04/17 23:45 Urine WBC 2-5 /hpf (0-5) H 03/04/17 23:45 Ur Epithelial Cells FEW /lpf (FEW) 03/04/17 23:45 Urine Bacteria FEW /hpf (NONE SEEN) 03/04/17 23:45 Urine Mucus MANY /lpf (FEW) 03/04/17 23:45 - Physical Exam Vitals and I&O: Vital Signs Temp 97.7 F 03/08/17 07:53 Pulse 100 03/08/17 07:53 Resp 18 03/08/17 07:53 BP 85/58 03/08/17 07:53 Pulse Ox 97 03/08/17 07:53 Intake & Output 03/07/17 03/08/17 03/08/17 18:59 06:59 18:59 Intake Total 405 90 Balance 405 90 Weight (lbs) 129 lb 4.8 oz 127 lb 6 oz Intake: Tube Feeding 405 90 Other: # Voids 5 Active Medications: Current Medications Acetaminophen (Tylenol 650mg/20.3ml Suspension) 650 mg GT Q4H PRN PRN Reason: Pain or Fever >101 Stop: 05/03/17 07:47 Al Hydrox/Mg Hydrox/Simethicone (Maalox) 30 ml PO Q6H PRN PRN Reason: Dyspepsia Stop: 05/03/17 07:49 Albuterol Sulfate (Albuterol 2.5mg/3ml Neb Ud) 2.5 mg HHN Q6HRT PRN PRN Reason: Wheezing Stop: 05/03/17 07:47 Alendronate Sodium (Fosamax) 70 mg PO QSAT@0630 [facility] Stop: 05/09/17 06:29 Ascorbic Acid (Vitamin C) 500 mg GT BID ELLEN Stop: 05/03/17 08:59 Last Admin: 03/08/17 09:15 Dose: 500 mg Bisacodyl (Dulcolax 10 Mg Supp) 10 mg RC DAILY PRN PRN Reason: Constipation Stop: 05/03/17 07:47 Calcium Carbonate (Tums) 500 mg GT TID [facility] Stop: 05/03/17 08:59 Last Admin: 03/08/17 09:16 Dose: 500 mg Carbamazepine (Tegretol) 400 mg GT 2000 ELLEN PRN Reason: Protocol Stop: 05/03/17 19:59 Last Admin: 03/07/17 20:00 Dose: 200 mg Carbamazepine (Tegretol) 200 mg GT BID ELLEN PRN Reason: Protocol Stop: 05/03/17 08:59 Last Admin: 03/08/17 09:15 Dose: 200 mg Cholecalciferol (Vitamin D3) 1,000 iu GT DAILY [facility] Stop: 05/03/17 08:59 Last Admin: 03/08/17 09:16 Dose: 1,000 iu Ferrous Sulfate (Iron) 300 mg GT TID [facility] Stop: 05/03/17 08:59 Last Admin: 03/08/17 09:17 Dose: 300 mg Guaifenesin (Robitussin) 200 mg PO Q4HR PRN PRN Reason: Cough or Congestion Stop: 05/03/17 07:49 Cefepime HCl 1 gm/ Dextrose 50 mls @ 100 mls/hr IV Q12H [facility] Stop: 05/03/17 07:59 Last Admin: 03/07/17 21:00 Dose: Not Given Dextrose/Sodium Chloride (D5-0.9%Ns) 1,000 mls @ 80 mls/hr IV .[id number] [facility] Stop: 05/03/17 07:59 Last Admin: 03/07/17 06:38 Dose: 80 mls/hr Lactobacillus Rhamnosus (Culturelle) 1 each PO DAILY ELLNE Stop: 05/04/17 08:59 Last Admin: 03/08/17 09:17 Dose: 1 each Magnesium Hydroxide (Milk Of Magnesia) 30 ml GT DAILY PRN PRN Reason: Constipation Stop: 05/03/17 07:47 Metoclopramide HCl (Reglan) 10 mg GT QID [facility] Stop: 05/03/17 08:59 Last Admin: 03/08/17 09:16 Dose: 10 mg Miscellaneous (Probiotic Screen) 1 ea MC PRN PRN PRN Reason: PROTOCOL Stop: 05/03/17 13:25 Ondansetron HCl (Zofran) 4 mg IV Q8H PRN PRN Reason: Nausea / Vomiting Stop: 05/03/17 07:49 Pantoprazole Sodium (Protonix) 40 mg GT DAILY [facility] Stop: 05/03/17 08:59 Last Admin: 03/08/17 09:17 Dose: 40 mg Sodium Phosphate (Fleet Enema) 135 ml RC PRN PRN PRN Reason: IF DULCOLAX INEFFECTIVE Stop: 05/03/17 07:47 General: weak, alert HEENT: NC/AT, PERRLA Neck: Supple, No JVD Lungs: CTAB Cardiovascular: RRR, Normal S1, Normal S2, without murmur Abdomen: soft, non-tender, non-distended, positive bowel sound Extremities: excoriation Neurological: alert Internal Medicine Assmt/Plan - Assessment Assessment: SEPSIS SEIZURE CEREBRAL PALSY PARAPLEGIA OSTEOPOROSIS S/P PEG - Plan Plan: continue ivabx if tolerate gtf ok to dc today seizure precautions ivf for hydration continue current plan of care Nutritional Asmnt/Malnutr-PDOC - Dietary Evaluation Malnutrition Findings (Please click <Entered> for more info): Nutritional Asmnt/Malnutrition Start: 03/06/17 09: 43 Text: Status: Active Freq: Document 03/06/17 09:43 JANA (Rec: 03/06/17 10:13 JANA [email or web address]) Nutritional Asmnt/Malnutrition Patient General Information Nutritional Screening High Risk Diagnosis Sepsis Pertinent Medical Hx/Surgical Hx Seizures, Cerebral palsy, Paraplegia, osteoporosis, dysphagia with G-tube Subjective Information Pt was admitted from SNF with G-tube. Noted pt is non-verbal . TF Nutren 2.0 is running at 47ml/hr x 14hr from 1000- 1200am. Spoke with ROSALIA Rice , pt is tolerating well, no residual noted this morning. Physical exam performed, showed no muscle/fat wasting. Current Diet Order/ Nutrition Support Nutren 2.0 at 47ml/hr x 14hr daily, providing 1316kcal, 55g pro Pertinent Medications Vitamin C, Vitamin D, D5 80ml/ hr, Iron, Culturelle, Reglan Pertinent Labs 03/06: Na 134L, K 3.7, Cl 107, BUN 11, Cr 0.4L, Ca 8.5L, Glu 103 03/05: Phos 2.2L, Mg 2.5 Nutritional Hx/Data Height 4 ft 11 in Height (Calculated Centimeters) 149.9 Current Weight (lbs) 132 lb 11.2 oz Weight (Calculated Kilograms) 60.2 Weight (Calculated Grams) 94267.7 [place] Body Weight 100 % [place] Body Weight 133 Body Mass Index (BMI) 26.8 Weight Status Overweight GI Symptoms Difficult in: Swallowing Food Allergies No Usual diet at home at residential: TwoCal HN 47ml/hr x 14hr daily, providing 1316kcal Skin Integrity/Comment: Intact Estimated Nutritional Goals BEE in Kcals: Using Current wt Calories/Kcals/Kg 30-35 Kcals Calculated 9513-7756 Protein: Using Current wt Protein g/k.2-1.5 Protein Calculated 72-90 Fluid: ml 1800-2100ml (1ml/kcal) Nutritional Problem 2. Problem Problem Inadequate enteral intake Etiology current nutrition support not meeting increased nutritional needs Signs/Symptoms: current TF meeting 75% of lower end calorie and protein needs 1. Problem Problem Increased nutrition needs ( calorie and protein) Etiology increased metabolic demands Signs/Symptoms: dx of sepsis Malnutrition Alert Protein-Calorie Malnutrition N/A Is there a minimum of two criteria No selected? Query Text:Check all the applicable criteria. A minimum of two criteria are recommended for diagnosis of either severe or non-severe malnutrition. Intervention/Recommendation Recommendations by RD Increase Calorie Intake Comments 1. Recommend to increase TF rate to 65ml/hr x 14hr daily. It provides 1820kcal, 76g pro and 630ml free water, meeting 100% of estimated nutritional needs 2. Monitor labs, wt weekly, skin integrity 3. F/U as high risk in 2-3 days, 03/08-03/09 Expected Outcomes/Goals Expected Outcomes/Goals 1. Pt to meet 100% of nutritional needs with tolerance 2. Labs to improve 3. Wt stability 4. Skin to remain intact
--- NOTE | 2017-03-08 21:54 | Discharge Summary ---
DATE OF DISCHARGE: 03/08/2017 DICTATED FOR: Dr. Justin Rubio. DISCHARGE DIAGNOSES: Sepsis, seizures, cerebral palsy, paraplegia, osteoporosis, status post PEG placement. HISTORY OF PRESENT ILLNESS: A 41-year-old male with a history of seizures, cerebral palsy, paraplegia, osteoporosis, dysphagia with G-tube, was admitted from nursing facility secondary to the above complaints. The patient was brought to the ER and diagnosed of sepsis and admitted for further management. PHYSICAL EXAMINATION: GENERAL: The patient is middle-aged male. Awake, in no pain distress. VITAL SIGNS: Stable. HEENT: Head, normocephalic, atraumatic. NECK: Supple. No mass. LUNGS: Clear bilaterally. HEART: Regular rate and rhythm. ABDOMEN: Soft, nontender. HOSPITAL COURSE: During the hospital stay, the patient was admitted to the Med/Surg Unit. The patient was on empiric IV antibiotics of Maxipime and vancomycin, as well as on IV fluids for hydration. The patient had a urine culture and blood culture done and no growth after 48 hours. The patient's electrolyte levels are being monitored as well. LABORATORY DATA: The patient had a chest x-ray upon admission and the impression is, if there is clinical concern for occult pulmonary mass lesion increased by basilar lung markings favoring atelectatic changes, no focal consolidation identified. Due to patient having poor IV access, the patient had a PICC line placed. The patient tolerated well. The patient did not have any seizures or any fevers during the hospital stay, for this reason, the patient is stable for discharge. CONDITION UPON DISCHARGE: Fair. DISPOSITION: [facility]. DISCHARGE MEDICATIONS: The patient to continue Levaquin 500 mg daily for 7 more days. JOB# [id number]
== END 2017-03-08 19:15 | disposition home or self-care (01) | DRG 720 ==
LOC: ER 21:11 → MSI 03-04 00:20
PROVIDERS: ADMIT Internal Medicine; ATTEND Internal Medicine
PROC: 02HV33Z Insertion of Infusion Device into Superior Vena Cava, Percutaneous Approach (ICD-10-PCS; principal; 2017-03-08)
DX: A41.9 Sepsis, unspecified organism (principal); F73 Profound intellectual disabilities; R53.2 Functional quadriplegia; R13.10 Dysphagia, unspecified; G40.909 Epilepsy, unspecified, not intractable, without status epilepticus; D64.9 Anemia, unspecified; G80.9 Cerebral palsy, unspecified; M81.0 Age-related osteoporosis without current pathological fracture; Z93.1 Gastrostomy status
CPT/HCPCS: 36415-UA; 71010-TC; 80048-TC; 80053-TC; 81001-TC; 81003-TC; 83605; 83735-TC; 84100-TC; 85007-TC; 85025-TC; 85027-TC; 86141-TC; 87086-90; 90799; 93005; 94760; 96375; J0692; J2405; J2543; J3370; J7030; J7042; X7704; Z7610